=== PATIENT | female | born 1955 | race African-American/Black ===

== ENCOUNTER 2017-01-26 03:41 | Emergency (ER) | payer OTHER ==
[2017-01-26] MEDS ORDERED: SODIUM CHLORIDE 1,000 ML IV ONE (03:51)
--- NOTE | 2017-01-26 03:51 | PDOC ---
History of Present Illness - General Chief Complaint: Pain Stated Complaint: LT FACE/EYE PAIN Time Seen by Provider: 01/26/17 03:43 History Source: Patient Exam Limitations: No Limitations - History of Present Illness Initial Comments: 01/26/17 03:51 This is a 62-year-old female who comes in complaining of approximately 2 weeks of progressive left frontal and maxillary sinus as well as left temporal pain. Patient said her doctor put her on azithromycin approximately 2 weeks ago as she also had pain on the right side. Patient said the pain on the right side resolved with the azithromycin but the pain on the left side is been getting worse. Patient denies any nausea vomiting. Patient denies any neck stiffness. Patient denies any fevers or chills. Patient said she is otherwise healthy with the exception of a history of hypertension. PAST MEDICAL HISTORY: no significant history PAST SURGICAL HISTORY: no significant history FAMILY HISTORY: no pertinant history SOCIAL HISTORY: Pt lives with family and is employed. MEDICATIONS: reviewed ALLERGIES: As per nursing notes Review of Systems General: No fevers or chills, no weakness, no weight loss HEENT: No change in vision. No sore throat,. No ear pain CardioVascular: No chest pain or shortness of breath Respiratory:No cough, or wheezing. Gastrointestinal: no nausea, vomitting, diarrhea or constipation, No rectal bleeding Genitourinary: No dysuria, hematuria, or frequency Musculoskeletal: No joint or muscle pain or swelling Neurologic: No headache, vertigo, dizziness or loss of consciousness Psychiatric: nor depression Skin: No rashes or easy bruising Endocrine: no increased thirst or abnormal weight change Allergic: no skin or latex allergy All other systems reviewed and normal Exam: General: Well-nourished well-developed individual, no acute distress HEENT: Throat: Normal, tonsils normal, no erythema or exudate, poor dentition Neck: Supple, no meningeal signs, no lymphadenopathy SINUES: There is no nasal discharge. There is tenderness and slight increase in warmth over palpation of the left frontal and maxillary sinuses. There is no firm palpable cord over the left temporal artery. Eyes::Pupils equal reactive and round, extraocular motion intact Extremities: Warm, dry, no cyanosis, clubbing, or edema Skin: No rashes Neuro: Alert and oriented x3, nonfocal exam, grossly intact, normal gait Psych: Normal mood and affect Medical decision making: This is a 62-year-old female with poor dentition who comes in complaining of pain of her sinuses of the left side of her face. A workup will be initiated including labs, CBC, and COMP, C-reactive protein CT of the sinuses and head were ordered 01/26/17 06:03 CT scan shows moderate mucosal thickening of all the sinuses There is also a periapical dental abscess Assessment and plan: This is a 62-year-old female with left side of her face sinus pain and headache. Patient had a workup: CBC was normal and there is no left shift. Chemistries were unremarkable with the exception of a mildly elevated glucose and protein. A C-reactive protein was done which was moderately elevated most likely secondary to the dental abscess as well as the sinusitis. Patient started on antibiotics given a dose of IV clindamycin as she is ALLERGIC to the penicillins this should cover both the sinuses as well at the tooth abscess. Prescription was sent to her pharmacy to continue the clindamycin 3 mg 4 times a day Patient hasn't dentist that she has seen in the past that she can follow-up with. Patient was referred to an ENT for evaluation and further management of her pansinusitis. Patient was also instructed to follow up with her primary care doctor and was given copies of all of her blood work Past History - Past Medical History Allergies/Adverse Reactions: Allergies Allergy/AdvReac Type Severity Reaction Status Date / Time Penicillins Allergy Verified 02/07/15 12:02 Home Medications: Ambulatory Orders Aspirin [ASA -] 81 mg PO DAILY 02/07/15 Cholecalciferol (Vitamin D3) [D-2000] 2,000 unit PO DAILY 02/07/15 Nifedipine ER [Procardia Xl -] 60 mg PO DAILY 02/07/15 Clindamycin [Cleocin -] 300 mg PO Q6HPO #40 capsule 01/26/17 HTN: Yes - Suicide/Smoking/Psychosocial Hx Smoking History: Never smoked Hx Alcohol Use: No Drug/Substance Use Hx: No Substance Use Type: None ED Treatment Course - LABORATORY CBC & Chemistry Diagram: 01/26/17 04:04 01/26/17 04:04 *DC/Admit/Observation/Transfer Diagnosis at time of Disposition: Acute sinusitis Qualifiers: Sinusitis location: unspecified location Recurrence: recurrent Qualified Code(s ): J01.91 - Acute recurrent sinusitis, unspecified - Discharge Dispostion Disposition: HOME Condition at time of disposition: Stable Admit: No - Prescriptions Prescriptions: Clindamycin [Cleocin -] 300 mg PO Q6HPO #40 capsule - Referrals Referrals: Jb Zuniga [Primary Care Provider] - - Patient Instructions Printed Discharge Instructions: DI for Sinusitis Additional Instructions: For the pain you can take Tylenol or Motrin Get your prescription for the antibiotics filled and take them 4 times a day for 10 days. This particular antibiotic is prone to give a diarrhea so it is very important that you make sure you eat some yogurt or take some probiotics every day while you are taking this antibiotic. You need to follow-up with a dentist after you have paced antibiotics to be reevaluated for the dental abscess and to have your teeth evaluated. Follow-up with an ENT regarding the sinusitis. If he needed an ENT call Dr. John at for an appointment. Return to the emergency department immediately with ANY new, persistent or worsening symptoms. Continue any medications as previously prescribed by your physician. You should follow up with your primary doctor as soon as possible regarding today's emergency department visit. . Please make sure your doctor reviews the results of your emergency evaluation. Thank you for coming to the Emergency Department today for your care. It was a pleasure to see you today. Please note that your evaluation is INCOMPLETE until you follow-up with your doctor. - Post Discharge Activity
[2017-01-26 03:54] VITALS: PULSE 90; TEMP 98.5; BMI 31.8
[2017-01-26] MEDS ORDERED: ACETAMINOPHEN 1000 MG/100 ML VIAL (NON FORMULARY) IVPB ONE (03:57)
[2017-01-26 04:42] LABS: BASOPHIL 0.8 % (0-2.0); EOSINOPHIL 3.6 % (0-4.5); MCH 28.5 pg (25.7-33.7); MCHC 33.9 g/dl (32.0-36.0); MEAN CELL VOLUME 84.1 fl (80-96); MEAN PLT VOLUME 8.5 fl (7.5-11.1); NEUTROPHILS 50.7 % (42.8-82.8); PLATELET COUNT 314 K/MM3 (134-434); RDW 12.5 % (11.6-15.6); WHITE BLOOD COUNT 4.8 K/mm3 (4.0-10.0)
[2017-01-26 05:10] LABS: C-REACTIVE PROTEIN 6.9 MG/DL (0.00-0.3)
[2017-01-26 05:15] LABS: ANION GAP 10 (8-16); CALCIUM 8.8 mg/dl (8.4-10.2); CO2 27 mmol/L (22-28); CREATININE 0.9 mg/dl (0.6-1.3); GLUCOSE,RANDOM 120 mg/dl (74-106)
[2017-01-26 05:16] LABS: ALBUMIN 3.7 g/dl (3.5-5.0); BILIRUBIN,TOTAL 0.3 mg/dl (0.2-1.0); TOT PROT 8.8 g/dl (6.4-8.3)
[2017-01-26 05:17] LABS: ALK PHOS 113 U/L (32-92); SGOT/AST 21 U/L (10-42); SGPT/ALT 32 U/L (10-40)
[2017-01-26] MEDS ORDERED: CLINDAMYCIN 900 MG PREMIX IVPB 900 MG/50 ML BAG IVPB ONE (05:44)
[2017-01-26] MEDS ORDERED: CLINDAMYCIN PHOSPHATE 300 MG/2 ML VIAL ONE (05:51)
[2017-01-26] MEDS ORDERED: CLINDAMYCIN PHOSPHATE 600 MG/4 ML VIAL ONE (05:51)
[2017-01-26 07:11] VITALS: BP 151/98
== END 2017-01-26 07:11 | disposition home or self-care (01) ==
LOC: FER 03:41
PROC: 3E03329 Introduction of Other Anti-infective into Peripheral Vein, Percutaneous Approach (ICD-10-PCS; principal; 2017-01-26)
PROC: 3E033GC Introduction of Other Therapeutic Substance into Peripheral Vein, Percutaneous Approach (ICD-10-PCS; 2017-01-26)
PROC: 3E0337Z Introduction of Electrolytic and Water Balance Substance into Peripheral Vein, Percutaneous Approach (ICD-10-PCS; 2017-01-26)
DX: J01.91 Acute recurrent sinusitis, unspecified (principal)
CPT/HCPCS: 36415; 70450-TC; 70486-TC; 80053; 85025; 86140; 99282-25

== ENCOUNTER 2018-05-20 11:06 | Emergency (ER) | payer MEDICARE, OTHER ==
--- NOTE | 2018-05-20 11:11 | PDOC ---
History of Present Illness - General Chief Complaint: Pain Stated Complaint: ABDOMINAL MUSCLES HURT WITH COUGH TOOK COUGH MED Past History - Past Medical History Allergies/Adverse Reactions: Allergies Allergy/AdvReac Type Severity Reaction Status Date / Time Penicillins Allergy Verified 05/20/18 11:08 Home Medications: Ambulatory Orders Aspirin [ASA -] 81 mg PO DAILY 02/07/15 Nifedipine ER [Procardia Xl -] 60 mg PO DAILY 02/07/15 Cyanocobalamin (Vitamin B-12) [Vitamin B-12] 1,000 mcg PO DAILY 05/20/18 COPD: No HTN: Yes - Suicide/Smoking/Psychosocial Hx Smoking History: Never smoked Hx Alcohol Use: No Drug/Substance Use Hx: No Substance Use Type: None *DC/Admit/Observation/Transfer - Discharge Dispostion Condition at time of disposition: Stable - Referrals - Patient Instructions - Post Discharge Activity
[2018-05-20 11:18] VITALS: BP 155/103; PULSE 89; TEMP 99.2; BMI 35.4
--- NOTE | 2018-05-20 11:41 | PDOC ---
History of Present Illness - General Chief Complaint: Pain Stated Complaint: ABDOMINAL MUSCLES HURT WITH COUGH TOOK COUGH MED Time Seen by Provider: 05/20/18 11:23 History Source: Patient Exam Limitations: No Limitations - History of Present Illness Initial Comments: 05/20/18 11:41 63 year old female c/ hx of HTN, rheumatoid arthritis (not on medications) p/w abdominal pain with coughing. For 3 days, the patient has endorsed a dry cough but no fevers, chills, chest pain or SOB. She has stated that she was coughing frequently. At home, took some theraflu which helped relieve the symptoms. However, a friend had given her a cough syrup with codeine and pt reported significant relief. Noted that when she coughs, she has upper abdominal discomfort. No pain at rest. No nausea, vomiting, diarrhea. No sick contacts. Past History - Past Medical History Allergies/Adverse Reactions: Allergies Allergy/AdvReac Type Severity Reaction Status Date / Time Penicillins Allergy Verified 05/20/18 11:08 Home Medications: Ambulatory Orders Aspirin [ASA -] 81 mg PO DAILY 02/07/15 Nifedipine ER [Procardia Xl -] 60 mg PO DAILY 02/07/15 Acetaminophen with Codeine [Tylenol with Codeine #3 Tablet] 1 each PO Q6H PRN # 10 tablet MDD 4 05/20/18 Benzonatate [Tessalon Pearls -] 100 mg PO TID PRN #21 capsule 05/20/18 Cyanocobalamin (Vitamin B-12) [Vitamin B-12] 1,000 mcg PO DAILY 05/20/18 Ibuprofen 400 mg PO Q6H PRN #20 tablet 05/20/18 COPD: No HTN: Yes - Suicide/Smoking/Psychosocial Hx Smoking History: Never smoked Information on smoking cessation initiated: No Hx Alcohol Use: Yes (SOCIAL) Drug/Substance Use Hx: Yes (MARIJUANA) Substance Use Type: None Review of Systems - Review of Systems Able to Perform ROS?: Yes Comments:: 05/20/18 11:43 GENERAL/CONSTITUTIONAL: No fever or chills. No weakness. HEAD, EYES, EARS, NOSE AND THROAT: No change in vision. No ear pain or discharge. No sore throat. CARDIOVASCULAR: No chest pain or shortness of breath. RESPIRATORY: No wheezing, or hemoptysis. + cough GASTROINTESTINAL: No nausea, vomiting, diarrhea or constipation. +abdominal discomfort with coughing GENITOURINARY: No dysuria, frequency, or change in urination. MUSCULOSKELETAL: No joint or muscle swelling or pain. No neck or back pain. SKIN: No rash NEUROLOGIC: No headache, vertigo, loss of consciousness, or change in strength/ sensation. ENDOCRINE: No increased thirst. No abnormal weight change. HEMATOLOGIC/LYMPHATIC: No anemia, easy bleeding, or history of blood clots. ALLERGIC/IMMUNOLOGIC: No hives or skin allergy. *Physical Exam - Vital Signs Last Vital Signs Temp Pulse Resp BP Pulse Ox 99.2 F 89 20 155/103 H 97 05/20/18 11:07 05/20/18 11:07 05/20/18 11:07 05/20/18 11:07 05/20/18 11:07 - Physical Exam Comments: 05/20/18 11:44 GENERAL: Awake, alert, and fully oriented, in no acute distress HEAD: No signs of trauma EYES: EOMI, sclera anicteric, conjunctiva clear ENT: Auricles normal inspection, hearing grossly normal, nares patent, Moist mucosa NECK: Normal ROM, supple, LUNGS: Breath sounds equal, clear to auscultation bilaterally. No wheezes, and no crackles HEART: Regular rate and rhythm, normal S1 and S2, no murmurs, rubs or gallops ABDOMEN: Soft, nontender, No guarding, no rebound. No masses EXTREMITIES: Normal range of motion, no edema. No clubbing or cyanosis. No cords, erythema, or tenderness NEUROLOGICAL: Cranial nerves II through XII grossly intact. Normal speech, normal gait SKIN: Warm, Dry, normal turgor, no rashes or lesions noted. Moderate Sedation - Procedure Monitoring Vital Signs: Procedure Monitoring Vital Signs Temperature 99.2 F 05/20/18 11:07 Pulse Rate 89 05/20/18 11:07 Respiratory Rate 20 05/20/18 11:07 Blood Pressure 155/103 H 05/20/18 11:07 O2 Sat by Pulse Oximetry (%) 97 05/20/18 11:07 Medical Decision Making - Medical Decision Making 05/20/18 11:45 Vital Signs Temp Pulse Resp BP Pulse Ox 99.2 F 89 20 155/103 H 97 05/20/18 11:07 05/20/18 11:07 05/20/18 11:07 05/20/18 11:07 05/20/18 11:07 I suspect that this is viral syndrome. Pt's abdominal pain is likely MSK from her constant coughing. Supportive care, antitussives, and follow up with PMD. Pt is well-appearing and nontoxic. *DC/Admit/Observation/Transfer Diagnosis at time of Disposition: Viral syndrome - Discharge Dispostion Disposition: HOME Condition at time of disposition: Stable Decision to Admit order: No - Prescriptions Prescriptions: Acetaminophen with Codeine [Tylenol with Codeine #3 Tablet] 1 each PO Q6H PRN # 10 tablet MDD 4 PRN Reason: Cough Benzonatate [Tessalon Pearls -] 100 mg PO TID PRN #21 capsule PRN Reason: Cough Ibuprofen 400 mg PO Q6H PRN #20 tablet PRN Reason: Pain - Referrals - Patient Instructions Printed Discharge Instructions: DI for Viral Syndrome Additional Instructions: You likely have a viral syndrome. Your abdominal pain is likely from the coughing. Take 400 mg ibuprofen every 6 to 8 hours as needed for pain. For your cough, please take 100 mg tessalon pearle every 8 hours as needed first. For very severe coughs, you may take the tylenol with codeine every 6 hours as needed. However, this medication contains a narcotic, so this may make you drowsy. Do not drink alcohol or drive on this medication. If you have worsening symptoms such as fever, difficulty breathing, please call your doctor or return to the ER. - Post Discharge Activity
== END 2018-05-20 11:46 | disposition home or self-care (01) ==
LOC: FER 11:06
DX: B34.9 Viral infection, unspecified (principal); I10 Essential (primary) hypertension
CPT/HCPCS: 99282-25

== ENCOUNTER 2021-11-06 23:32 | Emergency (ER) | payer BC, MEDICARE ==
[2021-11-06 23:42] VITALS: BP 153/103; PULSE 80; RESP 17; TEMP 98.6; BMI 31.8
[2021-11-07] MEDS ORDERED: LOPERAMIDE HCL 2 MG CAPSULE PO ONE (00:23)
[2021-11-07] MEDS ORDERED: LOPERAMIDE HCL 2 MG CAPSULE ONE (00:25)
== END 2021-11-07 00:34 | disposition home or self-care (01) ==
LOC: FER 23:32
DX: R19.7 Diarrhea, unspecified (principal)
CPT/HCPCS: 99283-25

== ENCOUNTER 2023-03-26 17:46 | Emergency (ER) | payer BC, OTHER ==
[2023-03-26 18:30] VITALS: RESP 18; TEMP 98.2; BMI 31.1
[2023-03-26 18:38] LABS: HEMATOCRIT 40.6 % (32.4-45.2); HEMOGLOBIN 14.3 G/dL (10.7-15.3); MCH 31.7 pg (25.7-33.7); MCHC 35.1 g/dl (32.0-36.0); MEAN CELL VOLUME 90.4 fl (80-96); MEAN PLT VOLUME 8.4 fl (7.5-11.1); PLATELET COUNT 260.9 10^3/uL (134-434); RBC 4.49 10^6/uL (3.60-5.2); RDW 14.4 % (11.6-15.6); WHITE BLOOD COUNT 3.9 10^3/uL (4.0-10.8)
[2023-03-26 19:05] LABS: PLATELET ESTIMATE ADEQUATE
[2023-03-26 19:16] LABS: ALBUMIN 4.3 g/dl (3.4-5.0); BILIRUBIN,TOTAL 0.4 mg/dl (0.2-1); CALCIUM 9.8 mg/dl (8.5-10.1); CREATININE 0.9 mg/dl (0.6-1.3); POTASSIUM 3.7 mmol/L (3.5-5.1); TOT PROT 8.3 g/dl (6.4-8.2)
[2023-03-26] MEDS ORDERED: AZITHROMYCIN 250 MG TABLET PO ONE (22:08)
[2023-03-26] MEDS ORDERED: AZITHROMYCIN 500 MG TABLET ONE (22:14)
[2023-03-26 22:25] VITALS: BP 145/96; PULSE 83
== END 2023-03-26 22:26 | disposition home or self-care (01) ==
LOC: FER 17:46
DX: K11.20 Sialoadenitis, unspecified (principal); K11.5 Sialolithiasis; R22.1 Localized swelling, mass and lump, neck; M54.2 Cervicalgia; R07.81 Pleurodynia
CPT/HCPCS: 36415; 70491-TC; 71045-TC-FY; 80053; 85027; 99285-25; Q9967